=== PATIENT | female | born 1980 | race Two or more races ===

== ENCOUNTER → 2016-08-18 | Outpatient (CLI) | payer OTHER ==
[~2016-08-18] MED LIST: ALBUTEROL17 GM INH; NAPROSYN500 MG PO; ROBAXIN 750750 MG PO
--- NOTE | ~2016-08-18 | US98 ---
[facility] A Service of [facility] RADIOLOGY TEXT RESULTS PATIENT: CAMERON ZAVALA [facility] : [birth year] UNIT #: [id number] AGE: [address]: Daly Morrison SEX: F ORDER DR: [id number] [facility]. [place], [place] [address] [id number] O MR#: [id number] Acc #: [id number] NAME: CAMERON ZAVALA : 1980 SEX: F STUDY DATE/TIME: 08/18/2016 9:41 UNIT: [facility] ROOM: STUDY DESCRIPTION: US Pelvic Non-OB Complete Attending Physician: Daly Morrison A.P.R.N. Ordering Physician: Daly Morrison A.P.R.N. Primary Care Physician: Daly Morrison A.P.R.N. MEDICAL IMAGING REPORT This report is preliminary unless electronic signature is present EXAM Pelvic ultrasound transabdominal and transvaginal technique 08/18/2016 INDICATIONS 36-year-old female with pelvic pain, lower abdominal and perineal area pain, symptoms 2 months. Sonographic imaging of the pelvis was performed with transabdominal technique and subsequently transvaginal technique for better evaluation of the adnexa and ovarian structures. COMPARISON STUDIES No comparisons. FINDINGS TRANSABDOMINAL IMAGING: The uterus measures about 7.2 x 4.4 x 5.7 cm. Endometrial stripe measures 5 mm. Both ovaries are present and appear within normal limits and demonstrate good flow. The right measures up to 2 cm and the left up to 2.8 cm. Small follicles present bilaterally. TRANSVAGINAL IMAGING: The patient initially refused transvaginal imaging and subsequently elected to proceed with the transvaginal portion of the study. The patient discontinue transvaginal imaging prior to completion, however. Endometrial stripe measures about 1-2 mm. Uterus otherwise unremarkable to the extent visualized. Neither ovary was seen. IMPRESSION Essentially negative pelvic ultrasound. No endometrial thickening. Ovaries unremarkable. Dictated by... [facility] A Service of [facility] RADIOLOGY TEXT RESULTS PATIENT: CAMERON ZAVALA [facility]: [facility] : 78 UNIT #: [id number] AGE: [address]: Daly Morrison SEX: F ORDER DR: Mario Anglin M.D. THIS IS AN ELECTRONICALLY VERIFIED REPORT Mario Anglin M.D. at 08/19/2016 7:34 AM Yudith TD: 08/18/2016 15:04 JOB #: [id number] MEDICAL IMAGING REPORT COPY
== END | disposition home or self-care (01) ==
LOC: CWCC 09:14
DX: R10.2 Pelvic and perineal pain (principal); E66.09 Other obesity due to excess calories; Z68.35 Body mass index [BMI] 35.0-35.9, adult; L84 Corns and callosities; K59.04 Chronic idiopathic constipation; Z79.899 Other long term (current) drug therapy
CPT/HCPCS: 76830; 76856